=== PATIENT | female | born 1980 | race Caucasian/White ===

== ENCOUNTER 2018-04-10 12:21 | Emergency (ER) | payer SELFPAY ==
[~2018-04-10 12:21] MED LIST: ACE500 PO; ACYC-57 PO; ADD25XRPT PO; ADDERAL; ALB17R INH; AMPH20TA18 PO; AUG875 PO; AZIT-18 PO; BENZ200C38 PO; CEFU500T50 PO; CIPR-326 PO; CIT20 PO; CITA10SO7 PO; CODE118S5 PO; DAR100 PO; DEXT15CA PO; DEXT15CA22 PO; DIA5 PO; DIAZ-1 PO; DOXY-179 PO; DOXY50SY2 PO; ESC10 PO; GUAI1200 PO; HYDR-4309 PO; IBU200 PO; IBU600 PO; KET10 PO; LID5T TOP; LOR5 PO; LOR5/325 PO; MULT-1335 PO; ONDA4TAB PO; PARO-243 PO; PER PO; PHEN200T32 PO; PROM-110 PO; TRA50 PO; TRAZ-133 PO; TRAZ150T8 PO; [UNRECOGNIZED DRUG - OTHER]
[2018-04-10 12:26] VITALS: BP 107/76
[2018-04-10] MEDS ORDERED: ADDE30XRPT PO (12:30)
[2018-04-10] MEDS ORDERED: CITA-145 PO (12:30)
[2018-04-10] MEDS ORDERED: SULF-198 PO (12:43)
[2018-04-10] MEDS ORDERED: HYDR-385 PO (12:43)
--- NOTE | 2018-04-10 12:45 | ER Report ---
History and Physical Time Seen By MD: 12:33 Hx. of Stated Complaint: TRIMMED TOENAILS YESTERDAY - SEVERE PAIN TO ALL NAILS TODAY. HPI/ROS CHIEF COMPLAINT: Pain to toes HISTORY OF PRESENT ILLNESS: 37-year-old female patient presents to emergency room with complaint of pain to toes. Patient states that she has been having pain for the last 2 days. She states that yesterday the pain was very significant. She states that she initially was having pain with the right great toe and then she cut her toenails all shorter. She states that after that she started having pain to all the toes. Patient states she's had ingrown toenails in the past and states that this feels differently. She states that she's not had any drainage. She has noticed that the ends were toes are red and there is some peeling of the skin on her toes. She states she normally wears sandals and often times will go barefoot and states that has not changed. She is unsure what could be the underlying cause of the pain. Allergies: Coded Allergies: Opioids - Morphine Analogues (Verified Allergy, Intermediate, HIVES, 07/10/15) meperidine (Verified Allergy, Intermediate, HIVES, 07/10/15) Uncoded Allergies: UNCURED PORK (Allergy, Mild, DIARRHEA, 11/02/08) Home Meds Active Scripts Hydrocodone Bit/Acetaminophen (HYDROCODON-ACETAMINOPHEN 5-325) 1 Each Tablet, 1 EACH PO Q4-6H PRN for PAIN, #8 TAB Prov:JUAN KING [facility] 04/10/18 Sulfamethoxazole/Trimet 800-160 Mg Tab (BACTRIM DS TABLET) 1 Each Tablet, 1 TAB PO Q12H, #14 TAB Prov:JUAN KING [facility] 04/10/18 Reported Medications Citalopram Hydrobromide (CITALOPRAM HBR) 20 Mg Tablet, 20 MG PO QDAY, #5 TAB 04/10/18 Amphet Asp/Amphet/D-Amphet (ADDERALL XR 30 MG CAPSULE) 30 Mg Cap.er.24h, 30 MG PO DAILY 04/10/18 Discontinued Reported Medications Ondansetron (ZOFRAN ODT) 4 Mg Tab.rapdis, 4 MG PO Q12H 07/10/15 Amphet Asp/Amphet/D-Amphet (ADDERALL 20 MG TABLET) 20 Mg Tablet, 20 MG PO BID 07/10/15 Past Medical/Surgical History Patient has a past medical history of migraines, IBS, bladder infections, kidney infections, frequent UTIs, hypoglycemia, acne, alcohol use, PTSD, depression, anxiety. Patient has a surgical history of left ectopic surgery, tendon repair and right hand. Patient has a family medical history of cancer, stroke, diabetes, psychiatric problems. Reviewed Nurses Notes: Yes Hx Smoking: Yes Smoking Status: Current: Every Day Smoker Exposure to Second Hand Smoke?: No Hx Substance Use Disorder: No Hx Alcohol Use: Yes Constitutional Vital Sign - Last 24 Hours 04/10/18 12:26 Temp 97.7 Pulse 61 Resp 18 B/P (MAP) 107/76 Pulse Ox 98 O2 Delivery Room Air Physical Exam General appearance: Alert no distress. Respiratory: Chest is non tender, lungs are clear to auscultation. Cardiac: Regular rate and rhythm. Skin: Patient does have erythema of the inside of her toes on all 10 toes. They're tender to touch. There is no drainage noted. Patient does have some areas where she has cut the skin on the hands of her toes. DIFFERENTIAL DIAGNOSIS: After history and physical exam differential diagnosis was considered for cellulitis, fungal infection. Medical Decision Making ED Course/Re-evaluation ED Course Patient was admitted to exam room, history and physical were obtained. Differential diagnoses were considered. On examination patient does have redness and tenderness to the ends of all 10 toes. I believe that she likely developed an infection on the right great toe and that when she was cutting all of her toenails she spread that to all of her toes. We will go ahead and put her on antibiotics. She is follow-up with her primary care provider Deanna a week to make sure the infection is clearing. She is return to emergency room if condition worsens. Patient requested something for pain for a couple of days and we'll go ahead and give her prescription for some hydrocodone/acetaminophen #8. Patient verbalized understanding and agreement with plan. Decision to Disposition Date: Apr 10, 2018 Decision to Disposition Time: 12:45 Depart Departure Latest Vital Signs Vital Signs Date Time Temp Pulse Resp B/P (MAP) Pulse Ox O2 Delivery O2 Flow Rate FiO2 04/10/18 12:26 97.7 61 18 107/76 98 Room Air Impression: Primary Impression: Nail bed infection Condition: Improved Disposition: HOME OR SELF-CARE New Scripts Hydrocodone Bit/Acetaminophen (HYDROCODON-ACETAMINOPHEN 5-325) 1 Each Tablet 1 EACH PO Q4-6H PRN for PAIN, #8 TAB Prov: JUAN KING 04/10/18 Sulfamethoxazole/Trimet 800-160 Mg Tab (BACTRIM DS TABLET) 1 Each Tablet 1 TAB PO Q12H, #14 TAB Prov: JUAN KING 04/10/18 Patient Instructions: GENERAL ER DISCHARGE INSTRUCTIONS Additional Instructions: Limit activity by pain. Get plenty of rest. Take the antibiotics as directed. REturn to the ER if condition worsens. Follow up with your primary care provider towards the end of this next week to make sure that infection is improving. JUAN KING Apr 10, 2018 12:45
== END 2018-04-10 12:57 | disposition home or self-care (01) ==
LOC: ER 12:26
DX: L03.031 Cellulitis of right toe (principal)
CPT/HCPCS: 99281